=== PATIENT | male | born 1945 | race Caucasian/White ===

== ENCOUNTER 2019-12-28 13:08 | Inpatient (IN) ==
[2019-12-28] MEDS ORDERED: 0.9 % Sodium Chloride 1,000 ML IVC ONE (13:53)
[2019-12-28 14:40] LABS: Basophils # 0.1 K/mcL (0.0-0.2); Basophils % 0.4 %; Immature Granulocytes % 0.9 % (0-4); Lymphocytes # 0.6 K/mcL (0.6-4.6); Lymphocytes % 3.1 %; Mean Corpuscular Volume 67.9 fL (83.0-100.0); Mean Platelet Volume 7.8 fL (9.4-12.4); Monocytes # 1.1 K/mcL (0.0-1.3); Monocytes % 5.3 %; Neutrophils # 18.4 K/mcL (1.6-8.9); Platelet Count 679 K/mcL (140-400); Red Blood Count 6.19 M/mcL (4.19-5.50); Red Cell Distribution Width 19.5 % (11.5-14.5); Segmented Neutrophils % 90.3 %; White Blood Count 20.4 K/mcL (4.3-11.1)
[2019-12-28 14:49] LABS: INR 1.3; Prothrombin Time 14.7 Seconds (9.4-12.1)
[2019-12-28 15:07] LABS: Alanine Aminotransferase 26 Units/L (7-52); Albumin 3.1 g/dL (3.5-5.7); Albumin/Globulin Ratio 0.9 (1.1-2.2); Alkaline Phosphatase 134 Units/L (34-104); Anisocytosis 1+ (Not Present); Aspartate Amino Transferase 22 Units/L (13-39); BUN/Creatinine Ratio 37 (6-26); Bilirubin,Direct 0.1 mg/dL (0.0-0.2); Bilirubin,Indirect 0.3 mg/dL (0.0-1.0); Bilirubin,Total 0.4 mg/dL (0.3-1.0); Blood Urea Nitrogen 46 mg/dL (8-23); Calcium 9.5 mg/dL (8.6-10.3); Carbon Dioxide 20 mEq/L (23-29); Chloride 92 mEq/L (98-107); Ethanol < 10 mg/dL (Less than 10); Globulin 3.3 g/dL (2.4-3.5); Glucose 172 mg/dL (70-105); Hypochromasia Present (Not Present); Macrocytosis Present (Not Present); Microcytosis Present (Not Present); Osmolality,Calculated 278 (280-300); Potassium 4.6 mEq/L (3.5-5.1); Sodium 126 mEq/L (136-145); Total Protein 6.4 g/dL (6.4-8.9); Troponin I < 0.03 ng/mL (< 0.04); eGFR For African Americans > 60 (> 60); eGFR For Non-African Americans 56 (> 60)
[2019-12-28] MEDS ORDERED: cefTRIAXone 1,000 MG in Water for inj. (sterile) 10 ML IVP ONE ×3 (15:22→20:37)
[2019-12-28 15:35] LABS: Amphetamine Screen,Urine Negative ng/mL (Cutoff=1000); Barbiturate Screen,Urine Negative ng/mL (Cutoff=200); Benzodiazepines Screen,Urine Negative ng/mL (Cutoff=200); Cannabinoid Screen,Urine Negative ng/mL (Cutoff = 50); Cocaine Screen,Urine Negative ng/mL (Cutoff= 300); Opiate Screen,Urine Negative ng/mL (Cutoff=300); Phencyclidine Screen,Urine Negative ng/mL (Cutoff=25)
[2019-12-28 15:45] LABS: Bilirubin,Urine Small (Negative); Blood,Urine Large (Negative); Clarity,Urine Cloudy (Clear); Glucose,Urine (UA) Normal (Normal); Ketones,Urine Negative (Negative); Leukocyte Esterase,Urine Large (Negative); Nitrite,Urine Negative (Negative); Protein,Urine 100 mg/dL (Neg-Trace); Specific Gravity,Urine 1.015 (1.010-1.025); Urobilinogen,Urine Normal (Normal)
[2019-12-28 15:50] LABS: Color,Urine Light-Red (Yellow)
[2019-12-28 16:08] LABS: RBC,Urine Present per hpf (0-3); WBC,Urine Present per hpf (0-3)
[2019-12-28 16:09] LABS: Renal Epithelial Cells,Urine Present per hpf (None-Few); Transitional Epi Cells,Urine Present per hpf (None-Few); Triple Phosphate Crystal,Urine Present
[2019-12-28 16:10] LABS: Bacteria,Urine Present per hpf (None-Few); Mucus,Urine Present per lpf (Few)
[2019-12-28] MEDS ORDERED: Gadolinium Contrast Agent (WT Based) IV PRN (16:33)
[2019-12-28] MEDS ORDERED: Naloxone 0.4 MG/ML INJ IVP PRN (16:36)
[2019-12-28] MEDS ORDERED: Acetaminophen 325 MG TABLET PO PRN (16:36)
[2019-12-28] MEDS ORDERED: *HR* LORazepam 2 MG/ML VIAL IVP ONE ×3 (16:57→19:51)
[2019-12-28] MEDS: *HR* Heparin 5,000 UNIT/ML VIAL SQ SCH (21:22)
[2019-12-28] MEDS: 0.9 % Sodium Chloride 1,000 ML IVC SCH (21:23)
[2019-12-29 00:35] LABS: C.difficile Toxin A/B Gene PCR Not detected (Not detect); Campylobacter by PCR Not detected (Not detect); Plesiomonas shigelloides PCR Not detected (Not detect); Salmonella PCR Not detected (Not detect); Vibrio PCR Not detected (Not detect); Vibrio cholerae PCR Not detected (Not detect); Yersinia enterocolitica PCR Not detected (Not detect)
[2019-12-29 00:36] LABS: Adenovirus F 40/41 PCR Not detected (Not detect); Astrovirus PCR Not detected (Not detect); Cryptosporidium by PCR Not detected (Not detect); Cyclospora cayetanensis PCR Not detected (Not detect); E. coli O157 by PCR Not detected (Not detect); Entamoeba histolytica PCR Not detected (Not detect); Enteroaggregative E.coli(EAEC) Not detected (Not detect); Enteropathogenic E.coli(EPEC) DETECTED (Not detect); Enterotoxigenic E.coli (ETEC) Not detected (Not detect); Giardia lamblia PCR Not detected (Not detect); Norovirus GI/GII PCR Not detected (Not detect); Rotavirus A PCR Not detected (Not detect); Sapovirus PCR Not detected (Not detect); Shig/EnteroinvasiveE coli EIEC Not detected (Not detect); Shigalike tox-prod E coli STEC Not detected (Not detect)
[2019-12-29 01:03] LABS: Basophils % 0.2 %; Eosinophils % 0.1 %; Hemoglobin 10.9 g/dL (12.9-16.9); Immature Granulocytes % 0.7 % (0-4); Lymphocytes % 7.1 %; Mean Corpuscular HGB Conc 30.3 g/dL (31.6-35.5); Mean Corpuscular Hemoglobin 21.5 pg (28.0-33.3); Mean Corpuscular Volume 70.9 fL (83.0-100.0); Mean Platelet Volume 7.9 fL (9.4-12.4); Monocytes # 0.8 K/mcL (0.0-1.3); Monocytes % 5.7 %; Neutrophils # 11.7 K/mcL (1.6-8.9); Platelet Count 533 K/mcL (140-400); Red Blood Count 5.08 M/mcL (4.19-5.50); Red Cell Distribution Width 18.7 % (11.5-14.5); Segmented Neutrophils % 86.2 %; White Blood Count 13.6 K/mcL (4.3-11.1)
[2019-12-29 01:22] LABS: BUN/Creatinine Ratio 43 (6-26); Blood Urea Nitrogen 43 mg/dL (8-23); Calcium 8.6 mg/dL (8.6-10.3); Carbon Dioxide 22 mEq/L (23-29); Chloride 99 mEq/L (98-107); Glucose 118 mg/dL (70-105); Magnesium 2.4 mg/dL (1.6-2.6); Osmolality,Calculated 278 (280-300); Potassium 4.4 mEq/L (3.5-5.1); Sodium 128 mEq/L (136-145); eGFR For African Americans > 60 (> 60); eGFR For Non-African Americans > 60 (> 60)
[2019-12-29] MEDS: *HR* Heparin 5,000 UNIT/ML VIAL SQ SCH ×3 (05:47→21:53)
[2019-12-29] MEDS ORDERED: cefTRIAXone 2,000 MG in Water for inj. (sterile) 20 ML IVP SCH (09:00)
[2019-12-29 14:57] LABS: Hematocrit 32.8 % (37.5-50.1); Hemoglobin 10.3 g/dL (12.9-16.9); Mean Corpuscular HGB Conc 31.4 g/dL (31.6-35.5); Mean Corpuscular Hemoglobin 21.5 pg (28.0-33.3); Mean Corpuscular Volume 68.6 fL (83.0-100.0); Platelet Count 522 K/mcL (140-400); Red Blood Count 4.78 M/mcL (4.19-5.50); Red Cell Distribution Width 18.5 % (11.5-14.5); White Blood Count 9.4 K/mcL (4.3-11.1)
[2019-12-29 15:37] LABS: Lymphocytes # 0.8 K/mcL (0.6-4.6); Monocytes # 0.7 K/mcL (0.0-1.3); Platelet Estimate Marked Increase (Normal)
[2019-12-29 15:38] LABS: Anisocytosis 1+ (Not Present); Dohle Bodies Present (Not Present); Microcytosis Present (Not Present); Toxic Granulation Present (Not Present)
[2019-12-29] MEDS: 0.9 % Sodium Chloride 1,000 ML IVC SCH (17:29)
[2019-12-30 04:44] LABS: Basophils % 0.1 %; Eosinophils % 0.4 %; Hematocrit 32.5 % (37.5-50.1); Hemoglobin 9.5 g/dL (12.9-16.9); Immature Granulocytes % 0.7 % (0-4); Lymphocytes # 0.6 K/mcL (0.6-4.6); Lymphocytes % 8.2 %; Mean Corpuscular HGB Conc 29.2 g/dL (31.6-35.5); Mean Corpuscular Hemoglobin 20.9 pg (28.0-33.3); Mean Corpuscular Volume 71.6 fL (83.0-100.0); Mean Platelet Volume 7.9 fL (9.4-12.4); Monocytes # 0.5 K/mcL (0.0-1.3); Monocytes % 6.9 %; Platelet Count 473 K/mcL (140-400); Red Blood Count 4.54 M/mcL (4.19-5.50); Red Cell Distribution Width 18.4 % (11.5-14.5); Segmented Neutrophils % 83.7 %; White Blood Count 7.2 K/mcL (4.3-11.1)
[2019-12-30 05:02] LABS: BUN/Creatinine Ratio 41 (6-26); Blood Urea Nitrogen 29 mg/dL (8-23); Calcium 8.1 mg/dL (8.6-10.3); Carbon Dioxide 22 mEq/L (23-29); Chloride 103 mEq/L (98-107); Glucose 99 mg/dL (70-105); Magnesium 2.3 mg/dL (1.6-2.6); Osmolality,Calculated 276 (280-300); Potassium 3.9 mEq/L (3.5-5.1); Sodium 130 mEq/L (136-145); eGFR For African Americans > 60 (> 60); eGFR For Non-African Americans > 60 (> 60)
[2019-12-30 05:28] LABS: Folate 4.5 ng/mL (3.0-16.0)
[2019-12-30] MEDS: *HR* Heparin 5,000 UNIT/ML VIAL SQ SCH (05:44)
[2019-12-30] MEDS: Piperacillin/Tazobactam 3.375 GM in 0.9 % Sodium Chloride Mini Bag 100 ML IVPB SCH ×2 (09:12→16:16)
[2019-12-30] MEDS: Ondansetron 4 MG/2 ML VIAL IVP PRN (16:55)
[2019-12-31] MEDS: Piperacillin/Tazobactam 3.375 GM in 0.9 % Sodium Chloride Mini Bag 100 ML IVPB SCH ×3 (00:16→15:57)
[2019-12-31 07:24] LABS: Eosinophils % 0.7 %; Hematocrit 32.5 % (37.5-50.1); Immature Granulocytes % 1.1 % (0-4); Lymphocytes # 0.9 K/mcL (0.6-4.6); Lymphocytes % 15.4 %; Mean Corpuscular HGB Conc 30.8 g/dL (31.6-35.5); Mean Corpuscular Hemoglobin 21.1 pg (28.0-33.3); Mean Corpuscular Volume 68.4 fL (83.0-100.0); Mean Platelet Volume 7.8 fL (9.4-12.4); Monocytes # 0.4 K/mcL (0.0-1.3); Monocytes % 7.9 %; Neutrophils # 4.2 K/mcL (1.6-8.9); Platelet Count 468 K/mcL (140-400); Red Blood Count 4.75 M/mcL (4.19-5.50); Red Cell Distribution Width 18.6 % (11.5-14.5); Segmented Neutrophils % 74.9 %; White Blood Count 5.6 K/mcL (4.3-11.1)
[2019-12-31 07:41] LABS: BUN/Creatinine Ratio 33 (6-26); Blood Urea Nitrogen 23 mg/dL (8-23); Calcium 8.2 mg/dL (8.6-10.3); Carbon Dioxide 22 mEq/L (23-29); Chloride 102 mEq/L (98-107); Glucose 109 mg/dL (70-105); Osmolality,Calculated 276 (280-300); Sodium 131 mEq/L (136-145); eGFR For African Americans > 60 (> 60); eGFR For Non-African Americans > 60 (> 60)
[2019-12-31 07:46] LABS: Anisocytosis 1+ (Not Present); Hypochromasia Present (Not Present); Microcytosis Present (Not Present); Platelet Estimate Increased (Normal)
[2019-12-31 07:47] LABS: Toxic Granulation Present (Not Present)
[2019-12-31] MEDS: Ondansetron 4 MG/2 ML VIAL IVP PRN ×2 (08:14→17:43)
[2019-12-31 09:16] LABS: Acinetobacter baumannii by PCR Not Detected (Not Detect); Candida albicans by PCR Not Detected (Not Detect); Candida glabrata by PCR Not Detected (Not Detect); Candida krusei by PCR Not Detected (Not Detect); Candida parapsilosis by PCR Not Detected (Not Detect); Candida tropicalis by PCR Not Detected (Not Detect); Enterobacter cloacae Cmplx PCR Not Detected (Not Detect); Enterobacteriaceae by PCR Not Detected (Not Detect); Enterococcus by PCR Not Detected (Not Detect); Escherichia coli by PCR Not Detected (Not Detect); Klebsiella oxytoca by PCR Not Detected (Not Detect); Klebsiella pneumoniae by PCR Not Detected (Not Detect); Proteus by PCR Not Detected (Not Detect); Pseudomonas aeruginosa by PCR DETECTED (Not Detect); Serratia marcescens by PCR Not Detected (Not Detect); Staphylococcus aureus by PCR Not Detected (Not Detect); Staphylococcus by PCR Not Detected (Not Detect); Streptococcus agalactiae(B)PCR Not Detected (Not Detect); Streptococcus by PCR Not Detected (Not Detect); Streptococcus pneumoniae PCR Not Detected (Not Detect); Streptococcus pyogenes (A) PCR Not Detected (Not Detect); blaKPC Carbapenem-Resist Gene Not Detected (Not Detect)
[2019-12-31] MEDS ORDERED: 0.9 % Sodium Chloride 1,000 ML IVC SCH (13:30)
[2020-01-01] MEDS: Piperacillin/Tazobactam 3.375 GM in 0.9 % Sodium Chloride Mini Bag 100 ML IVPB SCH ×3 (00:12→16:22)
[2020-01-01] MEDS: Ondansetron 4 MG/2 ML VIAL IVP PRN ×2 (08:09→16:34)
[2020-01-01 09:13] LABS: Basophils % 0.2 %; Eosinophils % 0.5 %; Hematocrit 36.4 % (37.5-50.1); Hemoglobin 11.1 g/dL (12.9-16.9); Immature Granulocytes % 1.1 % (0-4); Lymphocytes % 17.2 %; Mean Corpuscular HGB Conc 30.5 g/dL (31.6-35.5); Mean Corpuscular Hemoglobin 21.1 pg (28.0-33.3); Mean Corpuscular Volume 69.3 fL (83.0-100.0); Mean Platelet Volume 7.9 fL (9.4-12.4); Monocytes # 0.4 K/mcL (0.0-1.3); Monocytes % 6.4 %; Neutrophils # 4.2 K/mcL (1.6-8.9); Platelet Count 487 K/mcL (140-400); Red Blood Count 5.25 M/mcL (4.19-5.50); Red Cell Distribution Width 19.5 % (11.5-14.5); Segmented Neutrophils % 74.6 %; White Blood Count 5.6 K/mcL (4.3-11.1)
[2020-01-01 09:52] LABS: Microcytosis Present (Not Present)
[2020-01-01 09:53] LABS: Anisocytosis 1+ (Not Present); Platelet Estimate Increased (Normal)
[2020-01-01 10:05] LABS: BUN/Creatinine Ratio 25 (6-26); Blood Urea Nitrogen 19 mg/dL (8-23); Carbon Dioxide 20 mEq/L (23-29); Chloride 102 mEq/L (98-107); Glucose 115 mg/dL (70-105); Osmolality,Calculated 277 (280-300); Potassium 4.2 mEq/L (3.5-5.1); Sodium 132 mEq/L (136-145); eGFR For African Americans > 60 (> 60); eGFR For Non-African Americans > 60 (> 60)
[2020-01-02] MEDS: Piperacillin/Tazobactam 3.375 GM in 0.9 % Sodium Chloride Mini Bag 100 ML IVPB SCH ×2 (00:17→09:01)
[2020-01-02 09:16] LABS: Basophils % 0.4 %; Eosinophils % 0.9 %; Hematocrit 38.3 % (37.5-50.1); Hemoglobin 11.5 g/dL (12.9-16.9); Immature Granulocytes % 1.6 % (0-4); Lymphocytes # 0.8 K/mcL (0.6-4.6); Lymphocytes % 18.3 %; Mean Corpuscular Hemoglobin 21.1 pg (28.0-33.3); Mean Corpuscular Volume 70.3 fL (83.0-100.0); Mean Platelet Volume 8.2 fL (9.4-12.4); Monocytes # 0.3 K/mcL (0.0-1.3); Monocytes % 6.9 %; Neutrophils # 3.2 K/mcL (1.6-8.9); Platelet Count 399 K/mcL (140-400); Red Blood Count 5.45 M/mcL (4.19-5.50); Red Cell Distribution Width 19.9 % (11.5-14.5); Segmented Neutrophils % 71.9 %; White Blood Count 4.5 K/mcL (4.3-11.1)
[2020-01-02 09:38] LABS: BUN/Creatinine Ratio 25 (6-26); Blood Urea Nitrogen 16 mg/dL (8-23); Carbon Dioxide 24 mEq/L (23-29); Chloride 102 mEq/L (98-107); Glucose 102 mg/dL (70-105); Osmolality,Calculated 277 (280-300); Potassium 4.6 mEq/L (3.5-5.1); Sodium 133 mEq/L (136-145); eGFR For African Americans > 60 (> 60); eGFR For Non-African Americans > 60 (> 60)
[2020-01-02 15:19] VITALS: BP 126/79
== END 2020-01-02 17:17 | disposition other institution (70) | DRG 871 ==
LOC: EMEROOARM 13:08 → 3BNU 13:08 → SUATTDRO 16:26 → 3BNU 18:51
PROVIDERS: ADMIT Pharmacist; ATTEND Pharmacist

== ENCOUNTER 2020-01-23 14:39 | Inpatient (IN) ==
[2020-01-23 16:04] LABS: Hematocrit 32.5 % (37.5-50.1); Hemoglobin 9.6 g/dL (12.9-16.9); Immature Platelets 0.5 % (1.1-6.1); Mean Corpuscular HGB Conc 29.5 g/dL (31.6-35.5); Mean Corpuscular Hemoglobin 21.2 pg (28.0-33.3); Mean Corpuscular Volume 71.7 fL (83.0-100.0); Mean Platelet Volume 7.8 fL (9.4-12.4); Platelet Count 660 K/mcL (140-400); Red Blood Count 4.53 M/mcL (4.19-5.50); Red Cell Distribution Width 18.6 % (11.5-14.5); White Blood Count 23.8 K/mcL (4.3-11.1)
[2020-01-23 16:23] LABS: Monocytes # 0.5 K/mcL (0.0-1.3); Neutrophils # 22.4 K/mcL (1.6-8.9)
[2020-01-23 16:24] LABS: Toxic Granulation Present (Not Present)
[2020-01-23 16:26] LABS: BUN/Creatinine Ratio 31 (6-26); Blood Urea Nitrogen 22 mg/dL (8-23); Calcium 8.7 mg/dL (8.6-10.3); Carbon Dioxide 21 mEq/L (23-29); Chloride 96 mEq/L (98-107); Glucose 132 mg/dL (70-105); Osmolality,Calculated 273 (280-300); Potassium 3.9 mEq/L (3.5-5.1); Sodium 129 mEq/L (136-145); eGFR For African Americans > 60 (> 60); eGFR For Non-African Americans > 60 (> 60)
[2020-01-23 17:18] LABS: INR 1.4; Prothrombin Time 15.7 Seconds (9.4-12.1)
[2020-01-23 17:21] LABS: Activated Partial Thrombo Time 24.6 Seconds (26.0-36.0); Albumin 2.5 g/dL (3.5-5.7); Bilirubin,Direct 0.1 mg/dL (0.0-0.2); Bilirubin,Indirect 0.4 mg/dL (0.0-1.0); Bilirubin,Total 0.5 mg/dL (0.3-1.0); Globulin 2.5 g/dL (2.4-3.5); Magnesium 1.8 mg/dL (1.6-2.6); Phosphorous 3.3 mg/dL (2.7-4.5)
[2020-01-23 17:22] LABS: Troponin I < 0.03 ng/mL (< 0.04)
[2020-01-23 17:28] LABS: ABG Base Excess -1 mEq/L (-2 to 3); ABG HCO3 21 mEq/L (21-27); ABG Oxygen Saturation 98 % (95-98); ABG PCO2 26 mmHg (35-45); ABG PH 7.53 pH Units (7.32-7.45); ABG PO2 95 mmHg (85-104); ABG TCO2 22 mEq/L (20-26)
[2020-01-23] MEDS ORDERED: 0.9 % Sodium Chloride 1,000 ML IVC ONE ×2 (18:01→18:58)
[2020-01-23 18:54] LABS: Bilirubin,Urine Negative (Negative); Blood,Urine Large (Negative); Clarity,Urine Cloudy (Clear); Color,Urine Yellow (Yellow); Glucose,Urine (UA) Normal (Normal); Ketones,Urine Negative (Negative); Leukocyte Esterase,Urine Small (Negative); Nitrite,Urine Negative (Negative); Protein,Urine 30 mg/dL (Neg-Trace); Specific Gravity,Urine 1.013 (1.010-1.025); Urobilinogen,Urine Normal (Normal)
[2020-01-23 18:57] LABS: Bacteria,Urine None Seen per hpf (None-Few); RBC,Urine TNTC per hpf (0-3); Squamous Epithelial Cell,Urine Many per lpf (None-Few); WBC,Urine 15-30 per hpf (0-3)
[2020-01-23] MEDS ORDERED: MetroNIDAZOLE 500 MG/100 ML 500 MG/100 ML BAG IVPB ONE (18:59)
[2020-01-23 19:12] LABS: Hyaline Casts,Urine Few per lpf (None-Few); Renal Epithelial Cells,Urine Few per hpf (None-Few)
[2020-01-23] MEDS ORDERED: Naloxone 0.4 MG/ML INJ IVP PRN (21:08)
[2020-01-24] MEDS: MetroNIDAZOLE 500 MG/100 ML 500 MG/100 ML BAG IVPB SCH ×3 (00:21→15:36)
[2020-01-24 02:08] LABS: Hematocrit 24.8 % (37.5-50.1); Hemoglobin 7.4 g/dL (12.9-16.9); Immature Reticulocyte % 20.1 % (11.0-38.0); Mean Corpuscular HGB Conc 29.8 g/dL (31.6-35.5); Mean Corpuscular Hemoglobin 21.1 pg (28.0-33.3); Mean Corpuscular Volume 70.9 fL (83.0-100.0); Mean Platelet Volume 7.9 fL (9.4-12.4); Platelet Count 426 K/mcL (140-400); Red Cell Distribution Width 18.5 % (11.5-14.5); Retculocyte # 0.05 M/mcL (0.05-0.10); Reticulocyte % 1.5 % (1.6-2.8); White Blood Count 13.4 K/mcL (4.3-11.1)
[2020-01-24 02:42] LABS: Alanine Aminotransferase 12 Units/L (7-52); Alkaline Phosphatase 91 Units/L (34-104); Aspartate Amino Transferase 12 Units/L (13-39); BUN/Creatinine Ratio 35 (6-26); Bilirubin,Total 0.4 mg/dL (0.3-1.0); Blood Urea Nitrogen 21 mg/dL (8-23); Calcium 7.6 mg/dL (8.6-10.3); Carbon Dioxide 21 mEq/L (23-29); Chloride 102 mEq/L (98-107); Ferritin 82 ng/mL (20-250); Globulin 2.1 g/dL (2.4-3.5); Glucose 101 mg/dL (70-105); Iron < 10 mcg/dL (65-175); Lactate Dehydrogenase 90 Units/L (140-271); Magnesium 1.7 mg/dL (1.6-2.6); Osmolality,Calculated 273 (280-300); Phosphorous 3.2 mg/dL (2.7-4.5); Potassium 3.4 mEq/L (3.5-5.1); Sodium 130 mEq/L (136-145); Total Protein 4.1 g/dL (6.4-8.9); Transferrin 138 mg/dL (203-362); eGFR For African Americans > 60 (> 60); eGFR For Non-African Americans > 60 (> 60)
[2020-01-24 02:52] LABS: Lymphocytes # 0.8 K/mcL (0.6-4.6); Monocytes # 1.1 K/mcL (0.0-1.3); Neutrophils # 11.5 K/mcL (1.6-8.9)
[2020-01-24 02:53] LABS: Anisocytosis 1+ (Not Present); Hypochromasia Present (Not Present); Microcytosis Present (Not Present); Platelet Estimate Normal (Normal); Poikilocytosis 1+ (Not Present); Toxic Granulation Present (Not Present)
[2020-01-24] MEDS: levoFLOXacin 750 MG/150 ML 750 MG/150 ML BAG IVPB SCH (10:07)
[2020-01-24] MEDS ORDERED: SODIUM CHLORIDE/NAHCO3/KCL/PEG 4,000 ML SOLN.RECON PO ONE (17:00)
[2020-01-24 18:32] LABS: Hematocrit 24.9 % (37.5-50.1); Hemoglobin 7.4 g/dL (12.9-16.9)
[2020-01-24] MEDS ORDERED: Prochlorperazine 10 MG/2 ML VIAL IVP PRN (22:28)
[2020-01-25] MEDS: MetroNIDAZOLE 500 MG/100 ML 500 MG/100 ML BAG IVPB SCH ×3 (01:03→17:15)
[2020-01-25 07:46] LABS: Hematocrit 28.1 % (37.5-50.1); Hemoglobin 8.3 g/dL (12.9-16.9); Mean Corpuscular HGB Conc 29.5 g/dL (31.6-35.5); Mean Corpuscular Hemoglobin 21.1 pg (28.0-33.3); Mean Corpuscular Volume 71.5 fL (83.0-100.0); Mean Platelet Volume 7.9 fL (9.4-12.4); Platelet Count 479 K/mcL (140-400); Red Blood Count 3.93 M/mcL (4.19-5.50); Red Cell Distribution Width 18.8 % (11.5-14.5); White Blood Count 8.4 K/mcL (4.3-11.1)
[2020-01-25 08:05] LABS: BUN/Creatinine Ratio 27 (6-26); Blood Urea Nitrogen 17 mg/dL (8-23); Calcium 7.9 mg/dL (8.6-10.3); Carbon Dioxide 23 mEq/L (23-29); Chloride 104 mEq/L (98-107); Glucose 90 mg/dL (70-105); Osmolality,Calculated 273 (280-300); Potassium 3.9 mEq/L (3.5-5.1); Sodium 131 mEq/L (136-145); eGFR For African Americans > 60 (> 60); eGFR For Non-African Americans > 60 (> 60)
[2020-01-25] MEDS: levoFLOXacin 750 MG/150 ML 750 MG/150 ML BAG IVPB SCH (09:32)
[2020-01-25] MEDS ORDERED: *HR* Propofol 200 MG/20 ML VIAL IVP ONE (14:29)
[2020-01-25] MEDS ORDERED: Lidocaine -MPF 2% 2 ML VIAL ONE (14:32)
[2020-01-25] MEDS: 0.9 % Sodium Chloride 500 ML IVC SCH (15:06)
[2020-01-26] MEDS: MetroNIDAZOLE 500 MG/100 ML 500 MG/100 ML BAG IVPB SCH ×4 (00:41→23:44)
[2020-01-26] MEDS: 0.9 % Sodium Chloride 500 ML IVC SCH ×3 (03:01→19:20)
[2020-01-26] MEDS: levoFLOXacin 750 MG/150 ML 750 MG/150 ML BAG IVPB SCH (09:42)
[2020-01-26] MEDS ORDERED: Isovue-370 500 ML BOTTLE IVP ONE ×2 (16:04)
[2020-01-26] MEDS ORDERED: Iron Sucrose Complex 400 MG in 0.9 % Sodium Chloride 250 ML IVPB ONE (16:07)
[2020-01-26 17:42] LABS: Basophils % 0.2 %; Eosinophils % 0.3 %; Hematocrit 33.1 % (37.5-50.1); Hemoglobin 9.7 g/dL (12.9-16.9); Immature Granulocytes % 1.1 % (0-4); Lymphocytes # 0.8 K/mcL (0.6-4.6); Lymphocytes % 11.5 %; Mean Corpuscular HGB Conc 29.3 g/dL (31.6-35.5); Mean Corpuscular Hemoglobin 20.8 pg (28.0-33.3); Mean Platelet Volume 7.8 fL (9.4-12.4); Monocytes # 0.4 K/mcL (0.0-1.3); Monocytes % 6.4 %; Neutrophils # 5.3 K/mcL (1.6-8.9); Platelet Count 491 K/mcL (140-400); Red Blood Count 4.66 M/mcL (4.19-5.50); Red Cell Distribution Width 19.3 % (11.5-14.5); Segmented Neutrophils % 80.5 %; White Blood Count 6.6 K/mcL (4.3-11.1)
[2020-01-26 18:04] LABS: BUN/Creatinine Ratio 20 (6-26); Blood Urea Nitrogen 17 mg/dL (8-23); Calcium 8.1 mg/dL (8.6-10.3); Carbon Dioxide 19 mEq/L (23-29); Chloride 104 mEq/L (98-107); Glucose 103 mg/dL (70-105); Osmolality,Calculated 282 (280-300); Potassium 3.3 mEq/L (3.5-5.1); Sodium 135 mEq/L (136-145); eGFR For African Americans > 60 (> 60); eGFR For Non-African Americans > 60 (> 60)
[2020-01-26 18:09] LABS: Anisocytosis 1+ (Not Present); Hypochromasia Present (Not Present); Microcytosis Present (Not Present); Ovalocytes 1+ (Not Present)
[2020-01-26 18:10] LABS: Toxic Granulation Present (Not Present)
[2020-01-26] MEDS ORDERED: Isovue-370 500 ML BOTTLE PO ONE (19:06)
[2020-01-26 23:19] LABS: Bilirubin,Urine Negative (Negative); Blood,Urine Large (Negative); Glucose,Urine (UA) Normal (Normal); Ketones,Urine Trace mg/dL (Negative); Leukocyte Esterase,Urine Small (Negative); Nitrite,Urine Negative (Negative); PH,Urine 6.5 pH Units (5.0-8.0); Protein,Urine 100 mg/dL (Neg-Trace); Specific Gravity,Urine > 1.030 (1.010-1.025); Urobilinogen,Urine Normal (Normal)
[2020-01-26 23:22] LABS: Clarity,Urine Turbid (Clear); Color,Urine Dark-Red (Yellow)
[2020-01-27] MEDS: 0.9 % Sodium Chloride 500 ML IVC SCH (04:17)
[2020-01-27 05:59] LABS: Eosinophils % 0.3 %; Hematocrit 27.4 % (37.5-50.1); Hemoglobin 8.2 g/dL (12.9-16.9); Immature Granulocytes % 1.3 % (0-4); Lymphocytes # 0.8 K/mcL (0.6-4.6); Lymphocytes % 13.1 %; Mean Corpuscular HGB Conc 29.9 g/dL (31.6-35.5); Mean Corpuscular Hemoglobin 21.2 pg (28.0-33.3); Mean Corpuscular Volume 70.8 fL (83.0-100.0); Mean Platelet Volume 7.9 fL (9.4-12.4); Monocytes # 0.5 K/mcL (0.0-1.3); Monocytes % 7.6 %; Neutrophils # 4.9 K/mcL (1.6-8.9); Platelet Count 471 K/mcL (140-400); Red Blood Count 3.87 M/mcL (4.19-5.50); Red Cell Distribution Width 19.1 % (11.5-14.5); Segmented Neutrophils % 77.7 %; White Blood Count 6.4 K/mcL (4.3-11.1)
[2020-01-27 06:16] LABS: BUN/Creatinine Ratio 20 (6-26); Blood Urea Nitrogen 14 mg/dL (8-23); Calcium 7.9 mg/dL (8.6-10.3); Carbon Dioxide 19 mEq/L (23-29); Chloride 106 mEq/L (98-107); Glucose 100 mg/dL (70-105); Magnesium 1.9 mg/dL (1.6-2.6); Osmolality,Calculated 273 (280-300); Phosphorous 3.2 mg/dL (2.7-4.5); Potassium 3.4 mEq/L (3.5-5.1); Sodium 131 mEq/L (136-145); eGFR For African Americans > 60 (> 60); eGFR For Non-African Americans > 60 (> 60)
[2020-01-27] MEDS: MetroNIDAZOLE 500 MG/100 ML 500 MG/100 ML BAG IVPB SCH ×3 (09:19→23:38)
[2020-01-27] MEDS: levoFLOXacin 750 MG/150 ML 750 MG/150 ML BAG IVPB SCH (11:24)
[2020-01-27] MEDS ORDERED: *HR* HYDROmorphone PF 0.5 MG/0.5 ML SYRINGE IVP PRN (16:09)
[2020-01-27] MEDS ORDERED: Ondansetron 4 MG/2 ML VIAL IVP ONE (16:09)
[2020-01-27] MEDS ORDERED: *HR* Propofol 200 MG/20 ML VIAL IVP ONE (16:18)
[2020-01-27] MEDS ORDERED: Dexamethasone 4 MG/ML VIAL ONE (16:18)
[2020-01-27] MEDS ORDERED: *HR* FentaNYL (PF) 100 MCG/2 ML VIAL ONE (16:18)
[2020-01-27] MEDS ORDERED: Lidocaine -MPF 2% 2 ML VIAL ONE (16:18)
[2020-01-27] MEDS ORDERED: Ondansetron 4 MG/2 ML VIAL ONE (16:18)
[2020-01-27] MEDS ORDERED: *HR* Rocuronium Bromide 50 MG/5 ML VIAL ONE (17:05)
[2020-01-28] MEDS ORDERED: Naloxone 0.4 MG/ML INJ IVP PRN (03:05)
[2020-01-28] MEDS ORDERED: *HR* HYDROcodone/Acet 5/325 mg TABLET PO PRN (03:05)
[2020-01-28 07:08] LABS: Basophils % 0.2 %; Eosinophils % 0.2 %
[2020-01-28 07:10] LABS: Hematocrit 28.4 % (37.5-50.1); Immature Granulocytes % 1.2 % (0-4); Lymphocytes # 0.6 K/mcL (0.6-4.6); Mean Corpuscular HGB Conc 28.2 g/dL (31.6-35.5); Mean Corpuscular Hemoglobin 20.9 pg (28.0-33.3); Mean Corpuscular Volume 74.3 fL (83.0-100.0); Mean Platelet Volume 8.7 fL (9.4-12.4); Monocytes # 0.4 K/mcL (0.0-1.3); Monocytes % 6.7 %; Neutrophils # 4.7 K/mcL (1.6-8.9); Platelet Count 315 K/mcL (140-400); Red Blood Count 3.82 M/mcL (4.19-5.50); Red Cell Distribution Width 20.4 % (11.5-14.5); Segmented Neutrophils % 80.7 %; White Blood Count 5.8 K/mcL (4.3-11.1)
[2020-01-28 07:26] LABS: BUN/Creatinine Ratio 18 (6-26); Blood Urea Nitrogen 13 mg/dL (8-23); Calcium 7.9 mg/dL (8.6-10.3); Carbon Dioxide 19 mEq/L (23-29); Chloride 109 mEq/L (98-107); Glucose 92 mg/dL (70-105); Magnesium 1.9 mg/dL (1.6-2.6); Osmolality,Calculated 280 (280-300); Phosphorous 3.5 mg/dL (2.7-4.5); Potassium 3.9 mEq/L (3.5-5.1); Sodium 135 mEq/L (136-145); eGFR For African Americans > 60 (> 60); eGFR For Non-African Americans > 60 (> 60)
[2020-01-28] MEDS: MetroNIDAZOLE 500 MG/100 ML 500 MG/100 ML BAG IVPB SCH ×2 (07:35→16:42)
[2020-01-28 07:41] LABS: Platelet Estimate Normal (Normal)
[2020-01-28 07:42] LABS: Hypochromasia Present (Not Present)
[2020-01-28] MEDS: levoFLOXacin 750 MG/150 ML 750 MG/150 ML BAG IVPB SCH (08:41)
[2020-01-29] MEDS: MetroNIDAZOLE 500 MG/100 ML 500 MG/100 ML BAG IVPB SCH ×2 (00:03→07:54)
[2020-01-29 05:52] LABS: Basophils % 0.3 %; Eosinophils % 0.3 %; Hemoglobin 8.7 g/dL (12.9-16.9); Immature Granulocytes % 2.1 % (0-4); Lymphocytes # 0.8 K/mcL (0.6-4.6); Lymphocytes % 10.7 %; Mean Corpuscular Hemoglobin 21.6 pg (28.0-33.3); Mean Corpuscular Volume 74.6 fL (83.0-100.0); Mean Platelet Volume 7.9 fL (9.4-12.4); Monocytes # 0.5 K/mcL (0.0-1.3); Monocytes % 6.4 %; Neutrophils # 5.8 K/mcL (1.6-8.9); Platelet Count 460 K/mcL (140-400); Red Blood Count 4.02 M/mcL (4.19-5.50); Red Cell Distribution Width 20.7 % (11.5-14.5); Segmented Neutrophils % 80.2 %; White Blood Count 7.2 K/mcL (4.3-11.1)
[2020-01-29 05:59] LABS: BUN/Creatinine Ratio 21 (6-26); Blood Urea Nitrogen 15 mg/dL (8-23); Calcium 7.9 mg/dL (8.6-10.3); Carbon Dioxide 20 mEq/L (23-29); Chloride 108 mEq/L (98-107); Glucose 98 mg/dL (70-105); Osmolality,Calculated 281 (280-300); Phosphorous 2.9 mg/dL (2.7-4.5); Sodium 135 mEq/L (136-145); eGFR For African Americans > 60 (> 60); eGFR For Non-African Americans > 60 (> 60)
[2020-01-29] MEDS: levoFLOXacin 750 MG/150 ML 750 MG/150 ML BAG IVPB SCH (09:43)
[2020-01-29] MEDS ORDERED: *HR* LORazepam 2 MG/ML VIAL ONE (10:43)
[2020-01-29] MEDS ORDERED: *HR* LORazepam 2 MG/ML VIAL IVP ONE (10:45)
[2020-01-29] MEDS ORDERED: 0.9 % Sodium Chloride 1,000 ML IV ONE (10:51)
[2020-01-29 11:33] LABS: INR 1.5; Prothrombin Time 17.4 Seconds (9.4-12.1)
[2020-01-29 11:36] LABS: Activated Partial Thrombo Time 28.8 Seconds (26.0-36.0)
[2020-01-29] MEDS: levETIRAcetam 250 MG in 0.9 % Sodium Chloride 100 ML IVPB SCH ×2 (12:24→23:14)
[2020-01-29 14:25] LABS: Basophils % 0.3 %; Eosinophils % 0.1 %; Hematocrit 29.4 % (37.5-50.1); Hemoglobin 8.5 g/dL (12.9-16.9); Immature Granulocytes % 2.5 % (0-4); Immature Platelets 0.3 % (1.1-6.1); Lymphocytes # 0.7 K/mcL (0.6-4.6); Lymphocytes % 8.4 %; Mean Corpuscular HGB Conc 28.9 g/dL (31.6-35.5); Mean Corpuscular Hemoglobin 21.4 pg (28.0-33.3); Mean Corpuscular Volume 74.1 fL (83.0-100.0); Mean Platelet Volume 7.6 fL (9.4-12.4); Monocytes # 0.4 K/mcL (0.0-1.3); Neutrophils # 6.7 K/mcL (1.6-8.9); Platelet Count 582 K/mcL (140-400); Red Blood Count 3.97 M/mcL (4.19-5.50); Red Cell Distribution Width 20.6 % (11.5-14.5); Segmented Neutrophils % 83.7 %
[2020-01-29 14:39] LABS: Anisocytosis 1+ (Not Present); Hypochromasia Present (Not Present); Microcytosis Present (Not Present); Platelet Estimate Increased (Normal)
[2020-01-29 15:19] LABS: BUN/Creatinine Ratio 21 (6-26); Blood Urea Nitrogen 17 mg/dL (8-23); Calcium 7.8 mg/dL (8.6-10.3); Carbon Dioxide 19 mEq/L (23-29); Chloride 109 mEq/L (98-107); Glucose 105 mg/dL (70-105); Osmolality,Calculated 282 (280-300); Potassium 3.7 mEq/L (3.5-5.1); Sodium 135 mEq/L (136-145); eGFR For African Americans > 60 (> 60); eGFR For Non-African Americans > 60 (> 60)
[2020-01-29] MEDS: metroNIDAZOLE 500 MG TABLET PO SCH ×2 (16:12→19:53)
[2020-01-30 05:03] LABS: Basophils % 0.2 %; Eosinophils % 0.3 %; Hematocrit 26.6 % (37.5-50.1); Hemoglobin 7.8 g/dL (12.9-16.9); Lymphocytes # 0.7 K/mcL (0.6-4.6); Lymphocytes % 10.7 %; Mean Corpuscular HGB Conc 29.3 g/dL (31.6-35.5); Mean Corpuscular Volume 74.9 fL (83.0-100.0); Monocytes # 0.4 K/mcL (0.0-1.3); Monocytes % 6.1 %; Neutrophils # 4.9 K/mcL (1.6-8.9); Platelet Count 375 K/mcL (140-400); Red Blood Count 3.55 M/mcL (4.19-5.50); Red Cell Distribution Width 20.8 % (11.5-14.5); Segmented Neutrophils % 80.7 %; White Blood Count 6.1 K/mcL (4.3-11.1)
[2020-01-30 05:32] LABS: BUN/Creatinine Ratio 26 (6-26); Blood Urea Nitrogen 19 mg/dL (8-23); Calcium 7.6 mg/dL (8.6-10.3); Carbon Dioxide 19 mEq/L (23-29); Chloride 109 mEq/L (98-107); Glucose 102 mg/dL (70-105); Magnesium 1.9 mg/dL (1.6-2.6); Osmolality,Calculated 280 (280-300); Phosphorous 2.4 mg/dL (2.7-4.5); Potassium 3.4 mEq/L (3.5-5.1); Sodium 134 mEq/L (136-145); eGFR For African Americans > 60 (> 60); eGFR For Non-African Americans > 60 (> 60)
[2020-01-30] MEDS ORDERED: *HR* LORazepam 2 MG/ML VIAL IVP ONE (06:59)
[2020-01-30] MEDS ORDERED: Calcium Gluconate 1gm/50mL 1 GM/50 ML BAG IVPB ONE (08:52)
[2020-01-30] MEDS ORDERED: levoFLOXacin 750 MG TABLET PO SCH (09:00)
[2020-01-30] MEDS: metroNIDAZOLE 500 MG TABLET PO SCH ×3 (09:22→20:25)
[2020-01-30] MEDS: 0.9 % Sodium Chloride 1,000 ML IVC SCH ×2 (11:06→18:55)
[2020-01-30] MEDS: levETIRAcetam 250 MG in 0.9 % Sodium Chloride 100 ML IVPB SCH (12:17)
[2020-01-30] MEDS: Potassium Chloride Elixir 20 MEQ/15 ML UDC PO SCH ×2 (17:32→20:23)
[2020-01-30] MEDS ORDERED: Ondansetron 4 MG/2 ML VIAL IVP PRN (20:21)
[2020-01-30] MEDS ORDERED: levETIRAcetam 250 MG TABLET PO SCH (21:00)
[2020-01-31 05:55] LABS: Basophils % 0.2 %; Eosinophils % 0.5 %; Hematocrit 27.2 % (37.5-50.1); Hemoglobin 7.9 g/dL (12.9-16.9); Immature Granulocytes % 1.5 % (0-4); Lymphocytes # 1.1 K/mcL (0.6-4.6); Lymphocytes % 13.2 %; Mean Corpuscular Hemoglobin 21.8 pg (28.0-33.3); Mean Corpuscular Volume 75.1 fL (83.0-100.0); Mean Platelet Volume 7.8 fL (9.4-12.4); Monocytes # 0.4 K/mcL (0.0-1.3); Monocytes % 4.8 %; Platelet Count 382 K/mcL (140-400); Red Blood Count 3.62 M/mcL (4.19-5.50); Red Cell Distribution Width 21.2 % (11.5-14.5); Segmented Neutrophils % 79.8 %; White Blood Count 8.1 K/mcL (4.3-11.1)
[2020-01-31 06:09] LABS: Neutrophils # 6.5 K/mcL (1.6-8.9)
[2020-01-31 06:31] LABS: BUN/Creatinine Ratio 20 (6-26); Blood Urea Nitrogen 13 mg/dL (8-23); Calcium 7.6 mg/dL (8.6-10.3); Carbon Dioxide 22 mEq/L (23-29); Chloride 113 mEq/L (98-107); Glucose 101 mg/dL (70-105); Magnesium 1.7 mg/dL (1.6-2.6); Osmolality,Calculated 284 (280-300); Phosphorous 1.9 mg/dL (2.7-4.5); Potassium 4.5 mEq/L (3.5-5.1); Sodium 137 mEq/L (136-145); eGFR For African Americans > 60 (> 60); eGFR For Non-African Americans > 60 (> 60)
[2020-01-31 06:36] VITALS: BP 117/67
[2020-01-31 06:59] LABS: Anisocytosis 1+ (Not Present); Hypochromasia Present (Not Present)
[2020-01-31 07:00] LABS: Platelet Estimate Normal (Normal)
[2020-01-31] MEDS: 0.9 % Sodium Chloride 1,000 ML IVC SCH ×2 (07:20→07:51)
== END 2020-01-31 10:04 | disposition home or self-care (01) | DRG 853 ==
LOC: EMEROOARM 14:39 → 2ANU 14:39 → SUATTDRO 20:51 → 2ANU 21:40
PROVIDERS: ADMIT Family Medicine; ATTEND Internal Medicine

== ENCOUNTER 2020-02-17 06:30 | Inpatient (IN) ==
[2020-02-17] MEDS ORDERED: cefOXitin 2,000 MG in Water for inj. (sterile) 20 ML IVP ONE (06:59)
[2020-02-17] MEDS ORDERED: Ondansetron 4 MG/2 ML VIAL IVP ONE (07:00)
[2020-02-17] MEDS ORDERED: *HR* OxyCODONE Immed Rel 5 MG TABLET PO PRN (07:00)
[2020-02-17] MEDS ORDERED: *HR* Promethazine 25 MG/ML VIAL IVP PRN (07:00)
[2020-02-17] MEDS ORDERED: Ringers Solution, Lactated 1,000 ML IVC SCH (07:00)
[2020-02-17] MEDS ORDERED: *HR* HYDROmorphone PF 0.5 MG/0.5 ML SYRINGE IVP PRN (07:00)
[2020-02-17] MEDS ORDERED: *HR* Propofol 200 MG/20 ML VIAL IVP ONE (07:17)
[2020-02-17] MEDS ORDERED: *HR* Rocuronium Bromide 50 MG/5 ML VIAL ONE (07:19)
[2020-02-17] MEDS ORDERED: *HR* Succinylcholine 200 MG/10 ML VIAL IVP ONE (07:19)
[2020-02-17] MEDS ORDERED: Lidocaine -MPF 2% 2 ML VIAL ONE (07:19)
[2020-02-17] MEDS ORDERED: Acetaminophen IV 1,000 MG/100 ML INFUS..BTL ONE (08:03)
[2020-02-17] MEDS ORDERED: Ondansetron 4 MG/2 ML VIAL ONE (08:27)
[2020-02-17] MEDS ORDERED: *HR* Metoprolol 5 MG/5 ML VIAL IVP ONE (08:56)
[2020-02-17] MEDS ORDERED: *HR* FentaNYL (PF) 100 MCG/2 ML VIAL ONE (09:59)
[2020-02-17] MEDS ORDERED: Naloxone 0.4 MG/ML INJ IVP PRN (11:18)
[2020-02-17] MEDS ORDERED: 0.9 % Sodium Chloride 500 ML IVC PRN (11:33)
[2020-02-17] MEDS: haloperidoL 1 MG TABLET PO SCH ×2 (20:53→21:00)
[2020-02-17] MEDS: 0.9 % Sodium Chloride 1,000 ML IVC SCH (20:53)
[2020-02-18 03:33] LABS: Basophils # 0.1 K/mcL (0.0-0.2); Basophils % 0.3 %; Hematocrit 34.1 % (37.5-50.1); Hemoglobin 10.3 g/dL (12.9-16.9); Immature Granulocytes % 1.5 % (0-4); Lymphocytes # 0.6 K/mcL (0.6-4.6); Lymphocytes % 2.8 %; Mean Corpuscular HGB Conc 30.2 g/dL (31.6-35.5); Mean Corpuscular Hemoglobin 23.7 pg (28.0-33.3); Mean Corpuscular Volume 78.4 fL (83.0-100.0); Mean Platelet Volume 8.5 fL (9.4-12.4); Monocytes # 0.6 K/mcL (0.0-1.3); Monocytes % 3.1 %; Neutrophils # 18.5 K/mcL (1.6-8.9); Platelet Count 330 K/mcL (140-400); Red Blood Count 4.35 M/mcL (4.19-5.50); Red Cell Distribution Width 23.9 % (11.5-14.5); Segmented Neutrophils % 92.3 %
[2020-02-18 03:53] LABS: Anisocytosis 3+ (Not Present); Microcytosis Present (Not Present); Platelet Estimate Normal (Normal)
[2020-02-18 03:55] LABS: Calcium 7.4 mg/dL (8.6-10.3); Potassium 5.2 mEq/L (3.5-5.1)
[2020-02-18] MEDS: 0.9 % Sodium Chloride 1,000 ML IVC SCH ×3 (12:30→18:13)
[2020-02-18] MEDS: Ondansetron ODT 4 MG TAB.RAPDIS SL PRN (13:33)
[2020-02-18 16:39] LABS: Mean Platelet Volume 8.7 fL (9.4-12.4)
[2020-02-18 16:40] LABS: Hemoglobin 10.2 g/dL (12.9-16.9); Mean Corpuscular Hemoglobin 24.2 pg (28.0-33.3); Mean Corpuscular Volume 80.8 fL (83.0-100.0); Platelet Count 375 K/mcL (140-400); Red Blood Count 4.21 M/mcL (4.19-5.50); Red Cell Distribution Width 24.6 % (11.5-14.5); White Blood Count 29.7 K/mcL (4.3-11.1)
[2020-02-18 16:54] LABS: Calcium 7.7 mg/dL (8.6-10.3); Potassium 5.6 mEq/L (3.5-5.1)
[2020-02-18 16:59] LABS: Troponin I 0.26 ng/mL (< 0.04)
[2020-02-18 17:13] LABS: Lymphocytes # 0.6 K/mcL (0.6-4.6); Monocytes # 0.6 K/mcL (0.0-1.3); Neutrophils # 28.5 K/mcL (1.6-8.9)
[2020-02-18 17:14] LABS: Anisocytosis 2+ (Not Present)
[2020-02-18] MEDS ORDERED: 0.9 % Sodium Chloride 1,000 ML IVC SCH (17:15)
[2020-02-18] MEDS ORDERED: Calcium Gluconate 1gm/50mL 1 GM/50 ML BAG IVPB ONE (17:30)
[2020-02-18] MEDS ORDERED: *HR* Heparin 5,000 UNIT/ML VIAL SQ SCH (18:00)
[2020-02-18] MEDS ORDERED: Vancomycin 1 EACH in 0.9 % Sodium Chloride 250 ML IVPB PRN (18:00)
[2020-02-18] MEDS: Sodium Bicarbonate 150 MEQ in D5% in Water 1,000 ML IVC SCH (18:10)
[2020-02-18] MEDS: Piperacillin/Tazobactam 3.375 GM in 0.9 % Sodium Chloride Mini Bag 100 ML IVPB SCH (18:21)
[2020-02-18 20:23] LABS: ABG Base Excess -6 mEq/L (-2 to 3); ABG HCO3 16 mEq/L (21-27); ABG Oxygen Saturation 97 % (95-98); ABG PCO2 22 mmHg (35-45); ABG PH 7.47 pH Units (7.32-7.45); ABG PO2 82 mmHg (85-104); ABG TCO2 17 mEq/L (20-26)
[2020-02-18] MEDS: haloperidoL 1 MG TABLET PO SCH (20:23)
[2020-02-18 21:17] LABS: Albumin 1.6 g/dL (3.5-5.7); Albumin/Globulin Ratio 0.7 (1.1-2.2); Bilirubin,Direct 0.2 mg/dL (0.0-0.2); Bilirubin,Indirect 0.2 mg/dL (0.0-1.0); Bilirubin,Total 0.4 mg/dL (0.3-1.0); Globulin 2.2 g/dL (2.4-3.5); Total Protein 3.8 g/dL (6.4-8.9)
[2020-02-18 21:18] LABS: Calcium 7.1 mg/dL (8.6-10.3); Potassium 5.3 mEq/L (3.5-5.1)
[2020-02-18] MEDS ORDERED: *HR* Heparin 5,000 UNIT/ML VIAL IVP PRN (21:33)
[2020-02-18 22:01] LABS: Hematocrit 31.5 % (37.5-50.1); Hemoglobin 9.5 g/dL (12.9-16.9); Mean Corpuscular HGB Conc 30.2 g/dL (31.6-35.5); Mean Corpuscular Hemoglobin 23.5 pg (28.0-33.3); Mean Platelet Volume 8.6 fL (9.4-12.4); Platelet Count 303 K/mcL (140-400); Red Blood Count 4.04 M/mcL (4.19-5.50); White Blood Count 22.2 K/mcL (4.3-11.1)
[2020-02-18 22:13] LABS: Heparin anti-factor XA UFH < 0.04 IU/mL (0.30-0.70); INR 1.6; Prothrombin Time 17.8 Seconds (9.4-12.1)
[2020-02-18] MEDS: Heparin 25,000 UNIT/250 ML D5W 25,000 UNIT/250 ML IV.SOLN IVC SCH (22:21)
[2020-02-19 03:07] LABS: Basophils % 0.2 %; Hematocrit 31.7 % (37.5-50.1); Hemoglobin 9.6 g/dL (12.9-16.9); Immature Granulocytes % 1.9 % (0-4); Lymphocytes # 0.6 K/mcL (0.6-4.6); Lymphocytes % 2.8 %; Mean Corpuscular HGB Conc 30.3 g/dL (31.6-35.5); Mean Corpuscular Hemoglobin 23.7 pg (28.0-33.3); Mean Corpuscular Volume 78.3 fL (83.0-100.0); Mean Platelet Volume 8.8 fL (9.4-12.4); Monocytes # 0.5 K/mcL (0.0-1.3); Monocytes % 2.5 %; Platelet Count 292 K/mcL (140-400); Red Blood Count 4.05 M/mcL (4.19-5.50); Red Cell Distribution Width 24.2 % (11.5-14.5); Segmented Neutrophils % 92.6 %; White Blood Count 20.5 K/mcL (4.3-11.1)
[2020-02-19 03:10] LABS: Bilirubin,Urine Small (Negative); Blood,Urine Large (Negative); Clarity,Urine Turbid (Clear); Color,Urine Dark Yellow (Yellow); Glucose,Urine (UA) Normal (Normal); Ketones,Urine Trace mg/dL (Negative); Leukocyte Esterase,Urine Large (Negative); Nitrite,Urine Negative (Negative); PH,Urine 5.5 pH Units (5.0-8.0); Protein,Urine 100 mg/dL (Neg-Trace); Specific Gravity,Urine 1.026 (1.010-1.025); Urobilinogen,Urine Normal (Normal)
[2020-02-19 03:26] LABS: Calcium 7.3 mg/dL (8.6-10.3); Potassium 4.9 mEq/L (3.5-5.1)
[2020-02-19 03:57] LABS: Anisocytosis 2+ (Not Present); Platelet Estimate Normal (Normal)
[2020-02-19] MEDS: Sodium Bicarbonate 150 MEQ in D5% in Water 1,000 ML IVC SCH (05:24)
[2020-02-19] MEDS: Piperacillin/Tazobactam 3.375 GM in 0.9 % Sodium Chloride Mini Bag 100 ML IVPB SCH ×2 (05:25→17:10)
[2020-02-19] MEDS ORDERED: Vancomycin 500 MG in 0.9 % Sodium Chloride Mini Bag 100 ML IVPB ONE ×2 (09:00→14:00)
[2020-02-19 09:07] LABS: Phosphorous 5.9 mg/dL (2.7-4.5)
[2020-02-19 09:10] LABS: Troponin I 2.15 ng/mL (< 0.04)
[2020-02-19] MEDS: Albumin 25% 12.5gm/50mL 12.5 GM/50 ML IV.SOLN IVPB SCH ×4 (12:09→23:17)
[2020-02-19] MEDS: Aspirin Enteric Coated 81 MG Tablet PO SCH (12:17)
[2020-02-19 16:18] LABS: Troponin I 2.2 ng/mL (< 0.04)
[2020-02-19 16:56] LABS: Sodium, Urine 25.2 mEq/L
[2020-02-19] MEDS: 0.9 % Sodium Chloride 1,000 ML IVC SCH ×2 (17:07→21:22)
[2020-02-19] MEDS: *HR* Heparin 5,000 UNIT/ML VIAL IVP PRN ×2 (17:15→22:56)
[2020-02-19] MEDS ORDERED: Isovue-370 500 ML BOTTLE IVP ONE (17:44)
[2020-02-19 18:23] LABS: ABG Base Excess 1 mEq/L (-2 to 3); ABG HCO3 23 mEq/L (21-27); ABG Oxygen Saturation 98 % (95-98); ABG PCO2 27 mmHg (35-45); ABG PH 7.53 pH Units (7.32-7.45); ABG PO2 89 mmHg (85-104); ABG TCO2 24 mEq/L (20-26)
[2020-02-19] MEDS: haloperidoL 1 MG TABLET PO SCH (21:23)
[2020-02-20] MEDS: Heparin 25,000 UNIT/250 ML D5W 25,000 UNIT/250 ML IV.SOLN IVC SCH (01:52)
[2020-02-20] MEDS: 0.9 % Sodium Chloride 1,000 ML IVC SCH ×2 (03:37→06:20)
[2020-02-20 04:15] LABS: Hematocrit 24.8 % (37.5-50.1); Mean Corpuscular HGB Conc 30.2 g/dL (31.6-35.5); Mean Corpuscular Volume 79.2 fL (83.0-100.0); Mean Platelet Volume 8.6 fL (9.4-12.4); Platelet Count 216 K/mcL (140-400); Red Blood Count 3.13 M/mcL (4.19-5.50); White Blood Count 14.3 K/mcL (4.3-11.1)
[2020-02-20 04:22] LABS: Hemoglobin 7.5 g/dL (12.9-16.9)
[2020-02-20 04:35] LABS: Calcium 6.9 mg/dL (8.6-10.3); Magnesium 1.7 mg/dL (1.6-2.6); Phosphorous 5.8 mg/dL (2.7-4.5); Potassium 4.5 mEq/L (3.5-5.1)
[2020-02-20 04:36] LABS: Albumin 2.2 g/dL (3.5-5.7); Albumin/Globulin Ratio 1.4 (1.1-2.2); Bilirubin,Direct 0.3 mg/dL (0.0-0.2); Bilirubin,Indirect 0.2 mg/dL (0.0-1.0); Bilirubin,Total 0.5 mg/dL (0.3-1.0); Complement C3 65 mg/dL (87-200); Globulin 1.6 g/dL (2.4-3.5); Total Protein 3.8 g/dL (6.4-8.9)
[2020-02-20 04:58] LABS: Ferritin 129 ng/mL (20-250); Iron < 10 mcg/dL (65-175); Transferrin < 75 mg/dL (203-362)
[2020-02-20 05:03] LABS: Folate 9.4 ng/mL (3.0-16.0)
[2020-02-20 05:05] LABS: Vitamin B12 > 1500 pg/mL (250-1100)
[2020-02-20] MEDS: Piperacillin/Tazobactam 3.375 GM in 0.9 % Sodium Chloride Mini Bag 100 ML IVPB SCH ×2 (06:16→17:44)
[2020-02-20] MEDS ORDERED: Fluconazole 400 MG/200 ML 400 MG/200 ML BAG IVPB ONE (08:19)
[2020-02-20] MEDS ORDERED: Aminoglycoside Consult 1 EACH MC ONE (08:19)
[2020-02-20] MEDS ORDERED: Vancomycin 500 MG in 0.9 % Sodium Chloride Mini Bag 100 ML IVPB ONE (09:00)
[2020-02-20] MEDS: Iron Sucrose Complex 250 MG in 0.9 % Sodium Chloride 250 ML IVPB SCH (09:38)
[2020-02-20] MEDS: Aspirin Enteric Coated 81 MG Tablet PO SCH (09:50)
[2020-02-20] MEDS ORDERED: Lidocaine -MPF 1% 5 ML AMPUL INFILT ONE (09:57)
[2020-02-20] MEDS ORDERED: 0.9 % Sodium Chloride 250 ML ONE (11:06)
[2020-02-20] MEDS ORDERED: D10% in Water 500 ML IVC PRN (11:38)
[2020-02-20 16:04] LABS: Hematocrit 30.1 % (37.5-50.1)
[2020-02-20 16:08] LABS: Hemoglobin 9.2 g/dL (12.9-16.9)
[2020-02-20] MEDS ORDERED: Clinimix 5%-20% SOLUTION 2,000 ML with MVI, adult with vitamin K 10 ML, Sodium Chlori... IVC SCH (17:00)
[2020-02-20] MEDS: haloperidoL 1 MG TABLET PO SCH (22:32)
[2020-02-21 04:12] LABS: Hematocrit 30.4 % (37.5-50.1); Hemoglobin 9.4 g/dL (12.9-16.9); Mean Corpuscular HGB Conc 30.9 g/dL (31.6-35.5); Mean Corpuscular Hemoglobin 24.9 pg (28.0-33.3); Mean Corpuscular Volume 80.4 fL (83.0-100.0); Platelet Count 123 K/mcL (140-400); Red Blood Count 3.78 M/mcL (4.19-5.50); Red Cell Distribution Width 22.4 % (11.5-14.5); White Blood Count 15.4 K/mcL (4.3-11.1)
[2020-02-21 04:17] LABS: VBG Ionized Calcium 1.03 mmol/L (1.15-1.35)
[2020-02-21 04:31] LABS: Calcium 6.8 mg/dL (8.6-10.3); Magnesium 1.8 mg/dL (1.6-2.6); Phosphorous 4.6 mg/dL (2.7-4.5); Potassium 3.5 mEq/L (3.5-5.1)
[2020-02-21 04:35] LABS: Anisocytosis 2+ (Not Present); Lymphocytes # 0.5 K/mcL (0.6-4.6); Monocytes # 0.3 K/mcL (0.0-1.3); Neutrophils # 14.6 K/mcL (1.6-8.9); Polychromasia 1+ (Not Present)
[2020-02-21 04:36] LABS: Platelet Estimate Slight Decrease (Normal); Toxic Granulation Present (Not Present)
[2020-02-21] MEDS: Piperacillin/Tazobactam 3.375 GM in 0.9 % Sodium Chloride Mini Bag 100 ML IVPB SCH ×2 (05:32→17:21)
[2020-02-21] MEDS ORDERED: Potassium Chloride 40 MEQ, Lidocaine 1% 2 ML in 0.9 % Sodium Chloride 500 ML IVPB ONE (09:41)
[2020-02-21] MEDS: Iron Sucrose Complex 250 MG in 0.9 % Sodium Chloride 250 ML IVPB SCH (09:45)
[2020-02-21] MEDS: Aspirin Enteric Coated 81 MG Tablet PO SCH (09:45)
[2020-02-21] MEDS: Fluconazole 200 MG/100 ML 200 MG/100 ML BAG IVPB SCH (09:46)
[2020-02-21] MEDS: Metoprolol XL (24 HR) Succ 25 MG TAB.ER.24H PO SCH (15:50)
[2020-02-21] MEDS: Insulin LISPRO 300 UNITS/3 ML VIAL SQ SCH ×3 (16:01→21:33)
[2020-02-21] MEDS ORDERED: Clinimix 5%-20% SOLUTION 2,000 ML with MVI, adult with vitamin K 10 ML, Sodium Phosph... IVC SCH (17:00)
[2020-02-21] MEDS: haloperidoL 1 MG TABLET PO SCH (21:28)
[2020-02-21] MEDS: Ondansetron ODT 4 MG TAB.RAPDIS SL PRN (21:46)
[2020-02-22] MEDS: Insulin LISPRO 300 UNITS/3 ML VIAL SQ SCH ×7 (01:03→23:56)
[2020-02-22] MEDS: Piperacillin/Tazobactam 3.375 GM in 0.9 % Sodium Chloride Mini Bag 100 ML IVPB SCH ×2 (04:51→17:08)
[2020-02-22 06:01] LABS: Basophils % 0.1 %; Hematocrit 29.8 % (37.5-50.1); Hemoglobin 8.8 g/dL (12.9-16.9); Immature Granulocytes % 1.4 % (0-4); Immature Platelets 3.7 % (1.1-6.1); Lymphocytes # 0.4 K/mcL (0.6-4.6); Mean Corpuscular HGB Conc 29.5 g/dL (31.6-35.5); Mean Corpuscular Volume 84.7 fL (83.0-100.0); Mean Platelet Volume 10.1 fL (9.4-12.4); Monocytes # 0.2 K/mcL (0.0-1.3); Monocytes % 1.5 %; Red Blood Count 3.52 M/mcL (4.19-5.50); Red Cell Distribution Width 23.4 % (11.5-14.5); White Blood Count 13.6 K/mcL (4.3-11.1)
[2020-02-22 06:27] LABS: Neutrophils # 12.8 K/mcL (1.6-8.9); Platelet Count 76 K/mcL (140-400)
[2020-02-22 06:29] LABS: Anisocytosis 1+ (Not Present)
[2020-02-22 06:30] LABS: Platelet Estimate Slight Decrease (Normal); Toxic Granulation Present (Not Present)
[2020-02-22 08:07] LABS: Calcium 7.3 mg/dL (8.6-10.3); Magnesium 2.6 mg/dL (1.6-2.6); Potassium 3.5 mEq/L (3.5-5.1)
[2020-02-22] MEDS: Fluconazole 200 MG/100 ML 200 MG/100 ML BAG IVPB SCH (08:20)
[2020-02-22] MEDS: Metoprolol XL (24 HR) Succ 25 MG TAB.ER.24H PO SCH (08:20)
[2020-02-22] MEDS: Aspirin Enteric Coated 81 MG Tablet PO SCH (08:20)
[2020-02-22] MEDS: Iron Sucrose Complex 250 MG in 0.9 % Sodium Chloride 250 ML IVPB SCH (08:29)
[2020-02-22] MEDS ORDERED: Clinimix E 5%-15% SOLUTION 2,000 ML with MVI, adult with vitamin K 10 ML IVC SCH (17:00)
[2020-02-22] MEDS: haloperidoL 1 MG TABLET PO SCH (20:29)
[2020-02-23] MEDS: Insulin LISPRO 300 UNITS/3 ML VIAL SQ SCH ×5 (04:36→20:47)
[2020-02-23] MEDS: Piperacillin/Tazobactam 3.375 GM in 0.9 % Sodium Chloride Mini Bag 100 ML IVPB SCH (04:44)
[2020-02-23 05:36] LABS: Albumin 1.7 g/dL (3.5-5.7); Albumin/Globulin Ratio 0.9 (1.1-2.2); Bilirubin,Total 0.4 mg/dL (0.3-1.0); Calcium 7.5 mg/dL (8.6-10.3); Magnesium 2.6 mg/dL (1.6-2.6); Potassium 3.7 mEq/L (3.5-5.1); Total Protein 3.7 g/dL (6.4-8.9)
[2020-02-23] MEDS: Fluconazole 200 MG/100 ML 200 MG/100 ML BAG IVPB SCH (08:42)
[2020-02-23 08:45] LABS: Hemoglobin 9.1 g/dL (12.9-16.9); Mean Corpuscular Volume 80.7 fL (83.0-100.0)
[2020-02-23 08:46] LABS: Hematocrit 30.2 % (37.5-50.1); Immature Platelets 3.5 % (1.1-6.1); Mean Corpuscular HGB Conc 30.1 g/dL (31.6-35.5); Mean Corpuscular Hemoglobin 24.3 pg (28.0-33.3); Mean Platelet Volume 10.3 fL (9.4-12.4); Monocytes # 0.3 K/mcL (0.0-1.3); Red Blood Count 3.74 M/mcL (4.19-5.50); Red Cell Distribution Width 22.6 % (11.5-14.5)
[2020-02-23 08:49] LABS: Platelet Count 76 K/mcL (140-400)
[2020-02-23] MEDS: Metoprolol XL (24 HR) Succ 25 MG TAB.ER.24H PO SCH (08:49)
[2020-02-23] MEDS: Aspirin Enteric Coated 81 MG Tablet PO SCH (08:50)
[2020-02-23] MEDS: Iron Sucrose Complex 250 MG in 0.9 % Sodium Chloride 250 ML IVPB SCH (08:50)
[2020-02-23 09:10] LABS: Lymphocytes # 0.6 K/mcL (0.6-4.6); Neutrophils # 13.2 K/mcL (1.6-8.9)
[2020-02-23 09:11] LABS: Anisocytosis 1+ (Not Present); Hypochromasia Present (Not Present)
[2020-02-23 09:12] LABS: Microcytosis Present (Not Present); Platelet Estimate Decreased (Normal); Toxic Granulation Present (Not Present)
[2020-02-23 10:39] LABS: Acinetobacter baumannii by PCR Not Detected (Not Detect); Candida albicans by PCR Not Detected (Not Detect); Candida glabrata by PCR Not Detected (Not Detect); Candida krusei by PCR Not Detected (Not Detect); Candida parapsilosis by PCR Not Detected (Not Detect); Candida tropicalis by PCR Not Detected (Not Detect); Enterobacter cloacae Cmplx PCR Not Detected (Not Detect); Enterobacteriaceae by PCR Not Detected (Not Detect); Enterococcus by PCR Not Detected (Not Detect); Escherichia coli by PCR Not Detected (Not Detect); Klebsiella oxytoca by PCR Not Detected (Not Detect); Klebsiella pneumoniae by PCR Not Detected (Not Detect); Proteus by PCR Not Detected (Not Detect); Pseudomonas aeruginosa by PCR Not Detected (Not Detect); Serratia marcescens by PCR Not Detected (Not Detect); Staphylococcus aureus by PCR Not Detected (Not Detect); Staphylococcus by PCR Not Detected (Not Detect); Streptococcus agalactiae(B)PCR Not Detected (Not Detect); Streptococcus by PCR Not Detected (Not Detect); Streptococcus pneumoniae PCR Not Detected (Not Detect); Streptococcus pyogenes (A) PCR Not Detected (Not Detect)
[2020-02-23] MEDS: Ondansetron ODT 4 MG TAB.RAPDIS SL PRN (11:00)
[2020-02-23] MEDS ORDERED: Piperacillin/Tazobactam 3.375 GM in 0.9 % Sodium Chloride Mini Bag 100 ML IVPB SCH (12:00)
[2020-02-23] MEDS ORDERED: Haloperidol Oral Conc 10 MG/5 ML UDC PO PRN (12:24)
[2020-02-23] MEDS ORDERED: Clinimix E 5%-15% SOLUTION 2,000 ML with MVI, adult with vitamin K 10 ML IVC SCH (17:00)
[2020-02-23] MEDS: Meropenem 500 MG in 0.9 % Sodium Chloride Mini Bag 100 ML IVPB SCH (19:19)
[2020-02-23] MEDS: haloperidoL 1 MG TABLET PO SCH (20:46)
[2020-02-24] MEDS: Insulin LISPRO 300 UNITS/3 ML VIAL SQ SCH ×6 (00:07→22:34)
[2020-02-24] MEDS: Ondansetron ODT 4 MG TAB.RAPDIS SL PRN (03:53)
[2020-02-24 04:40] LABS: Basophils % 0.2 %; Eosinophils % 0.1 %; Hematocrit 31.6 % (37.5-50.1); Hemoglobin 9.5 g/dL (12.9-16.9); Immature Granulocytes % 2.3 % (0-4); Lymphocytes # 0.6 K/mcL (0.6-4.6); Lymphocytes % 3.9 %; Mean Corpuscular HGB Conc 30.1 g/dL (31.6-35.5); Mean Corpuscular Hemoglobin 24.5 pg (28.0-33.3); Mean Corpuscular Volume 81.7 fL (83.0-100.0); Mean Platelet Volume 10.1 fL (9.4-12.4); Monocytes # 0.5 K/mcL (0.0-1.3); Monocytes % 2.8 %; Platelet Count 110 K/mcL (140-400); Red Blood Count 3.87 M/mcL (4.19-5.50); Red Cell Distribution Width 23.4 % (11.5-14.5); Segmented Neutrophils % 90.7 %; White Blood Count 16.3 K/mcL (4.3-11.1)
[2020-02-24 04:44] LABS: Neutrophils # 14.8 K/mcL (1.6-8.9)
[2020-02-24 04:57] LABS: Calcium 7.9 mg/dL (8.6-10.3); Magnesium 2.6 mg/dL (1.6-2.6); Phosphorous 3.4 mg/dL (2.7-4.5)
[2020-02-24 04:59] LABS: Hypochromasia Present (Not Present); Microcytosis Present (Not Present); Platelet Estimate Decreased (Normal)
[2020-02-24 05:00] LABS: Anisocytosis 2+ (Not Present); Toxic Granulation Present (Not Present)
[2020-02-24] MEDS: Meropenem 500 MG in 0.9 % Sodium Chloride Mini Bag 100 ML IVPB SCH ×2 (05:34→17:55)
[2020-02-24] MEDS: Metoprolol XL (24 HR) Succ 25 MG TAB.ER.24H PO SCH (08:15)
[2020-02-24] MEDS: Aspirin Enteric Coated 81 MG Tablet PO SCH (08:28)
[2020-02-24] MEDS: Fluconazole 200 MG/100 ML 200 MG/100 ML BAG IVPB SCH (08:29)
[2020-02-24] MEDS ORDERED: *HR* LORazepam 2 MG/ML VIAL IM STA (08:33)
[2020-02-24] MEDS: Iron Sucrose Complex 250 MG in 0.9 % Sodium Chloride 250 ML IVPB SCH (10:00)
[2020-02-24 11:49] LABS: Albumin 1.7 g/dL (3.5-5.7); Albumin/Globulin Ratio 0.7 (1.1-2.2); Bilirubin,Direct 0.2 mg/dL (0.0-0.2); Bilirubin,Indirect 0.3 mg/dL (0.0-1.0); Bilirubin,Total 0.5 mg/dL (0.3-1.0); Globulin 2.3 g/dL (2.4-3.5)
[2020-02-24] MEDS ORDERED: *HR* LORazepam 2 MG/ML VIAL IVP PRN (16:04)
[2020-02-24] MEDS ORDERED: Clinimix E 5%-15% SOLUTION 2,000 ML with MVI, adult with vitamin K 10 ML IVC SCH (17:00)
[2020-02-25] MEDS: Insulin LISPRO 300 UNITS/3 ML VIAL SQ SCH ×6 (01:11→20:36)
[2020-02-25 01:29] LABS: BUN/Creatinine Ratio 56 (6-26); Blood Urea Nitrogen 77 mg/dL (8-23); Calcium 7.8 mg/dL (8.6-10.3); Carbon Dioxide 18 mEq/L (23-29); Chloride 115 mEq/L (98-107); Glucose 147 mg/dL (70-105); Magnesium 2.7 mg/dL (1.6-2.6); Osmolality,Calculated 316 (280-300); Phosphorous 4.2 mg/dL (2.7-4.5); Potassium 5.4 mEq/L (3.5-5.1); Sodium 140 mEq/L (136-145); eGFR For African Americans > 60 (> 60); eGFR For Non-African Americans 51 (> 60)
[2020-02-25] MEDS: Meropenem 500 MG in 0.9 % Sodium Chloride Mini Bag 100 ML IVPB SCH ×2 (06:05→17:05)
[2020-02-25] MEDS: Fluconazole 200 MG/100 ML 200 MG/100 ML BAG IVPB SCH (07:46)
[2020-02-25] MEDS ORDERED: Furosemide 20 MG/2 ML VIAL IVP ONE (07:52)
[2020-02-25 09:26] LABS: Hematocrit 28.4 % (37.5-50.1); Hemoglobin 8.3 g/dL (12.9-16.9); Mean Corpuscular HGB Conc 29.2 g/dL (31.6-35.5); Mean Corpuscular Hemoglobin 24.8 pg (28.0-33.3); Mean Corpuscular Volume 84.8 fL (83.0-100.0); Mean Platelet Volume 10.3 fL (9.4-12.4); Platelet Count 127 K/mcL (140-400); Red Blood Count 3.35 M/mcL (4.19-5.50); Red Cell Distribution Width 23.7 % (11.5-14.5)
[2020-02-25 09:47] LABS: BUN/Creatinine Ratio 71 (6-26); Blood Urea Nitrogen 54 mg/dL (8-23); Calcium 5.3 mg/dL (8.6-10.3); Carbon Dioxide 16 mEq/L (23-29); Chloride 124 mEq/L (98-107); Glucose 127 mg/dL (70-105); Osmolality,Calculated 312 (280-300); Potassium 2.8 mEq/L (3.5-5.1); Sodium 143 mEq/L (136-145); eGFR For African Americans > 60 (> 60); eGFR For Non-African Americans > 60 (> 60)
[2020-02-25 10:17] LABS: Hematocrit 28.6 % (37.5-50.1); Hemoglobin 8.5 g/dL (12.9-16.9); Mean Corpuscular HGB Conc 29.7 g/dL (31.6-35.5); Mean Corpuscular Hemoglobin 25.2 pg (28.0-33.3); Mean Corpuscular Volume 84.9 fL (83.0-100.0); Mean Platelet Volume 10.4 fL (9.4-12.4); Platelet Count 123 K/mcL (140-400); Red Blood Count 3.37 M/mcL (4.19-5.50); Red Cell Distribution Width 23.9 % (11.5-14.5)
[2020-02-25 10:38] LABS: Monocytes # 0.2 K/mcL (0.0-1.3)
[2020-02-25 10:39] LABS: BUN/Creatinine Ratio 63 (6-26); Blood Urea Nitrogen 73 mg/dL (8-23); Calcium 7.8 mg/dL (8.6-10.3); Carbon Dioxide 23 mEq/L (23-29); Chloride 114 mEq/L (98-107); Glucose 166 mg/dL (70-105); Osmolality,Calculated 315 (280-300); Potassium 3.9 mEq/L (3.5-5.1); Sodium 140 mEq/L (136-145); eGFR For African Americans > 60 (> 60); eGFR For Non-African Americans > 60 (> 60)
[2020-02-25 10:40] LABS: Lymphocytes # 0.3 K/mcL (0.6-4.6); Neutrophils # 10.5 K/mcL (1.6-8.9); Platelet Estimate Normal (Normal); Polychromasia 1+ (Not Present)
[2020-02-25 10:43] LABS: Anisocytosis 2+ (Not Present); Hypochromasia Present (Not Present)
[2020-02-25 10:44] LABS: Toxic Granulation Present (Not Present)
[2020-02-25] MEDS ORDERED: Clinimix E 5%-15% SOLUTION 2,000 ML with MVI, adult with vitamin K 10 ML IVC SCH (17:00)
[2020-02-26] MEDS: Insulin LISPRO 300 UNITS/3 ML VIAL SQ SCH ×4 (00:03→12:00)
[2020-02-26] MEDS: Meropenem 500 MG in 0.9 % Sodium Chloride Mini Bag 100 ML IVPB SCH (05:30)
[2020-02-26 05:36] LABS: Mean Corpuscular HGB Conc 29.4 g/dL (31.6-35.5); Mean Corpuscular Hemoglobin 25.1 pg (28.0-33.3); Mean Corpuscular Volume 85.4 fL (83.0-100.0); Mean Platelet Volume 11.5 fL (9.4-12.4); Platelet Count 125 K/mcL (140-400); Red Cell Distribution Width 24.8 % (11.5-14.5); White Blood Count 12.5 K/mcL (4.3-11.1)
[2020-02-26 05:37] LABS: Hemoglobin 10.3 g/dL (12.9-16.9)
[2020-02-26 05:56] LABS: BUN/Creatinine Ratio 70 (6-26); Blood Urea Nitrogen 81 mg/dL (8-23); Carbon Dioxide 19 mEq/L (23-29); Chloride 113 mEq/L (98-107); Glucose 188 mg/dL (70-105); Magnesium 2.4 mg/dL (1.6-2.6); Osmolality,Calculated 317 (280-300); Phosphorous 4.6 mg/dL (2.7-4.5); Potassium 4.3 mEq/L (3.5-5.1); Sodium 139 mEq/L (136-145); eGFR For African Americans > 60 (> 60); eGFR For Non-African Americans > 60 (> 60)
[2020-02-26] MEDS: Fluconazole 200 MG/100 ML 200 MG/100 ML BAG IVPB SCH (07:50)
[2020-02-26] MEDS: Ondansetron ODT 4 MG TAB.RAPDIS SL PRN (07:50)
[2020-02-26] MEDS ORDERED: Isovue-370 500 ML BOTTLE IVP ONE (08:08)
[2020-02-26] MEDS ORDERED: Ringers Solution, Lactated 1,000 ML IVC ONE (08:35)
[2020-02-26] MEDS ORDERED: Ringers Solution, Lactated 1,000 ML ONE (08:35)
[2020-02-26 11:59] VITALS: BP 105/62
[2020-02-26] MEDS ORDERED: Haloperidol Lactate 5 MG/ML VIAL IVP PRN (13:02)
[2020-02-26] MEDS: *HR* LORazepam 2 MG/ML VIAL IVP PRN ×4 (14:11→23:07)
[2020-02-26] MEDS: *HR* FentaNYL (PF) 100 MCG/2 ML VIAL IVP PRN ×3 (14:11→21:20)
[2020-02-26] MEDS: Atropine Sulfate 1% 40 DROP/2 ML BOTTLE SL PRN ×2 (14:39→23:09)
[2020-02-26] MEDS ORDERED: Scopolamine Patch 1.5 MG PATCH.TD72 TD SCH (15:00)
[2020-02-26] MEDS ORDERED: Clinimix E 5%-15% SOLUTION 2,000 ML with MVI, adult with vitamin K 10 ML IVC SCH (17:00)
[2020-02-27] MEDS: *HR* LORazepam 2 MG/ML VIAL IVP PRN ×3 (01:32→06:18)
[2020-02-27] MEDS ORDERED: *HR* LORazepam 2 MG/ML VIAL IVP SCH (12:00)
[2020-02-27] MEDS ORDERED: Aminoglycoside Consult 1 EACH MC ONE (13:55)
== END 2020-02-27 13:56 | disposition expired | DRG 329 ==
LOC: SAMDAY 06:30 → 3ANU 11:07 → SUATTDRO 11:07 → 2NNU 02-18 17:55 → 2NENU 02-24 20:50 → 2ANU 02-26 13:37
PROVIDERS: ADMIT Surgery; ATTEND Internal Medicine